=== PATIENT | female | born 1985 | race Caucasian/White ===

== ENCOUNTER → 2017-08-12 | Outpatient (CLI) | payer MEDICAID ==
--- NOTE | 2017-08-12 16:19 | RADIOLOGY REPORT (SQ) ---
EXAM DESCRIPTION: U/S [id number] TRNABD 1GES W/ODOP COMPLETED DATE/TIME: 08/12/2017 3:35 pm REASON FOR STUDY: SUPERVISION FOR FRENCH TRANSLATOR OF NORMAL FIRST Z34.01 ENCNTR FOR SUPRVSN OF NORMAL FIRST PREG, FIRST TRIMES COMPARISON: None. TECHNIQUE: Transabdominal static and realtime grayscale images acquired of the pelvis. Additional se lected spectral and color Doppler images recorded. All images stored on PACs. CG: Not available. CLINICAL DATES: LMP 05/26/2017. 11 weeks 1 day LIMITATIONS: None. FINDINGS: FETUS: Living intrauterine . ULTRASOUND EGA: 11 weeks 0 days ULTRASOUND MIGUELANGEL: 03/03/2018 CRL: 4.2 cm. FHR: 169 beats per minute. SUBCHORIONIC BLEED: No SIZE OF BLEED: Not applicable. UTERUS: No masses or anomalies. 10.6 x 7 x 8.4 cm. CERVICAL LENGTH: 3.5 cm. Closed. RIGHT ADNEXA: Ovary not seen. No adnexal free fluid. No adnexal masses. LEFT ADNEXA: Ovary not seen. No adnexal free fluid. No adnexal masses. FREE FLUID: None. OTHER: No other significant finding. IMPRESSION: LIVING INTRAUTERINE . EGA 11 weeks 0 days. Trimester of : First - 0 to 13 weeks. TECHNICAL DOCUMENTATION: JOB ID: [id number] [employer]- All Rights Reserved rev Reading location - IP/workstation name: [email or web address]
== END ==
LOC: RAD 14:59
PROVIDERS: ATTEND Nurse Practitioner Women's Health
DX: Z34.01 Encounter for supervision of normal first pregnancy, first trimester (principal)
CPT/HCPCS: 76801

== ENCOUNTER 2018-02-27 17:08 | Inpatient (IN) | payer MEDICAID ==
[2018-02-27 17:51] LABS: APPEARANCE,URINE CLEAR; BILIRUBIN,URINE NEGATIVE (NEGATIVE); COLOR,URINE YELLOW; GLUCOSE, URINE NEGATIVE (NEGATIVE); KETONES,URINE NEGATIVE (NEGATIVE); LEUKOCYTE ESTERASE,URINE SMALL (NEGATIVE); NITRITE,URINE NEGATIVE (NEGATIVE); PROTEIN,URINE NEGATIVE (NEGATIVE); URINE SPECIFIC GRAVITY 1.011; UROBILINOGEN,URINE NEGATIVE mg/dL (<2.0)
[2018-02-27 18:06] LABS: URINE AMPHETAMINES SCREEN NEGATIVE; URINE BARBITURATES SCREEN NEGATIVE; URINE BENZODIAZEPINES SCREEN NEGATIVE; URINE COCAINE SCREEN NEGATIVE; URINE MARIJUANA (THC) SCREEN NEGATIVE; URINE METHADONE SCREEN NEGATIVE; URINE PHENCYCLIDINE SCREEN NEGATIVE
[2018-02-27] MEDS ORDERED: RINGERS SOLUTION,LACTATED 1,000 ML IV ONE (18:21)
--- NOTE | 2018-02-27 18:21 | Admission Physical ---
Datetime Report Generated by CPN: 02/27/2018 18:20 CURRENT ADMISSION Chief Complaint: Uterine Contractions Indication for Induction: Not Applicable Admit Impression : Term, Intrauterine ; Ruptured Membranes Admit Plan: Admit to Unit; Initiate Labor Protocol ALLERGIES Medication Allergies: No Medication Allergies: No Known Allergies (02/27/2018) Latex: No Latex Allergies Food Allergies: none Environmental Allergies: none OBSTETRICAL HISTORY EDC: 03/01/2018 00:00 : 1 Para: 0 Gestational Diabetes: No Rh Sensitization: No Incompetent Cervix: No JADE: No Infertility: No ART Treatment: No Uterine Anomaly: No IUGR: No Hx Previous C/S: No Macrosomia: No Hx Loss/Stillborn: No PIH: No Hx : No Placenta Previa/Abruption: No Depression/PP Depression: Yes PTL/PROM: No Post Hemorrhage: No Current Procedures: Ultrasound Obstetrical History Comments: G1- Current SEE RECORDS Alcohol: No Cocaine: No Other Illicit Drugs: No Cigarettes: Former Smoker. 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 Surgery: No Heart Disease: Yes Hosp/Surgery: Yes Autoimmune Disorder: No Anesthetic Complications: No Kidney Disease: No Abnormal Pap Smear: No Neuro/Epilepsy: No Psychiatric Disorders: No Other Medical Diseases: No Hepatitis/Liver Disease: No Significant Family History: No Varicosities/Phlebitis: No Trauma/Violence : No Thyroid Dysfunction: No Medical History Comments: on labetelol for palpitations, Gallbladder removed- 2000, Kidney stone removed 2014 INFECTIOUS HISTORY Gonorrhea: No Genital Herpes: No Chlamydia: No Tuberculosis: No Syphilis: No Hepatitis: No HIV/AIDS Exposure: No Rash or Viral Illness: No HPV: No PHYSICAL EXAM General: Normal HEENT: Normal Neurologic: Normal Thyroid: Normal Heart: Normal Lungs: Normal Breast: Normal Back: Normal Abdomen: Normal Genitourinary Exam: Normal Extremities: Normal DTRs: Normal Pelvic Type: Adequate Vital Signs: Reviewed; Within Normal Limits VAGINAL EXAM Dilatation: 2 Effacement: 50% Station: -3 MEMBRANES Pooling: Negative Ferning Results: Positive Membranes: Ruptured Amniotic Fluid Color: Clear FETUS A EGA: 39.5 Monitoring: External US FHR- Baseline: 150s Variability: Moderate 6-25bpm Accelerations: 15X15 Decelerations: None FHR Category: Category I Admit Comment: Pt had SROM at 1630. Actim Prom Positive. Not uncomfortable with contractions. GBS Negative. PLANS FOR LABOR AND DELIVERY Labor and Delivery: None Pain Management: Epidural Feeding Preference: Breast Benefit of Breast Feed Discussed: Yes Circumcision: N/A INFORMED CONSENT Signature: with User ID: [email or web address]
[2018-02-27 18:38] LABS: ABSOLUTE BASOPHILS # (AUTO) 0.1 10^3/uL (0.0-0.2); ABSOLUTE EOSINOPHILS # (AUTO) 0.2 10^3/uL (0.0-0.6); ABSOLUTE LYMPHOCYTES (AUTO) 1.6 10^3/uL (0.5-4.7); ABSOLUTE NEUT (AUTO) 8.6 10^3/uL (1.7-8.2); BASOPHILS % (AUTO) 0.6 % (0-2); EOSINOPHILS % (AUTO) 1.4 % (0-6); HEMATOCRIT 39.6 % (36.0-47.0); LYMPHOCYTES % (AUTO) 14.1 % (13-45); MEAN CORPUSCULAR HEMOGLOBIN 25.5 pg (27.0-33.4); MEAN CORPUSCULAR HGB CONC 32.9 g/dL (32.0-36.0); MEAN CORPUSCULAR VOLUME 78 fl (80-97); MONOCYTES % (AUTO) 8.7 % (3-13); PLATELET COUNT 281 10^3/uL (150-450); RED BLOOD COUNT 5.11 10^6/uL (3.72-5.28); RED CELL DISTRIBUTION WIDTH 14.8 % (11.5-14.0); SEGMENTED NEUTROPHILS % (AUTO) 75.2 % (42-78); TOTAL CELLS COUNTED % (AUTO) 100 %; WHITE BLOOD COUNT 11.4 10^3/uL (4.0-10.5)
[2018-02-27] MEDS ORDERED: LIDOCAINE 1% INJ-PF (10 MG/ML) 30 ML SDV ONE (19:00)
[2018-02-27] MEDS ORDERED: MISOPROSTOL 0.2 MG TABLET ONE (19:00)
[2018-02-27] MEDS ORDERED: OXYTOCIN/NORMAL SALINE 20 UNIT/1,000 ML RTUINJ ONE (19:00)
[2018-02-27] MEDS ORDERED: OXYTOCIN/NORMAL SALINE 20 UNIT/1,000 ML RTUINJ IV PRN (19:56)
[2018-02-28] MEDS ORDERED: DIPHENHYDRAMINE HCL 25 MG CAPSULE ONE (05:54)
[2018-02-28] MEDS ORDERED: EPHEDRINE SULFATE INJ 50 MG/1 ML AMPULE ONE (06:29)
[2018-02-28] MEDS ORDERED: BUPIVACAINE HCL 0.5 % INJ/PF 30 ML SDV ONE (06:30)
[2018-02-28] MEDS ORDERED: FENTANYL/BUPIVACAINE/NS/PF 300 MCG/150 ML RTUINJ EPI ONE (06:30)
--- NOTE | 2018-02-28 06:38 | L&D Progress Notes ---
PROGRESS NOTES Datetime Report Generated by CPN: 02/28/2018 06:38 PROGRESS NOTE Impression: Arrest of Dilatation/Descent Plan Other: stop pitocin for 1/2 hr Vital Signs : Reviewed; Within Normal Limits Comment: Pt was hyperstimulating and now has some labial and cervical swelling. I spoke with pt and asked her to consider an epidural so that her body can relax a little and maybe she will progress. Will restart Pitocin after epidural. VAGINAL EXAM Dilatation: 2 Effacement: 50% Station: -3 LAST VAGINAL EXAM-NURSING Dilitation: 7.0 Dilitation: 7.0 Dilitation: 7.0 Dilitation: 5.0 Dilitation: 2.0 Effacement: 90 Effacement: 90 Effacement: 90 Effacement: 75 Effacement: 70 Station: 0 Station: 0 Station: 0 Station: 0 Station: -3 Contractions: RN at bedside, troubleshooting beau novii, not picking up contractions MEMBRANES Pooling: Negative Ferning Results: Positive Membranes: Ruptured Amniotic Fluid Color: Clear FETUS A FHR - Baseline: 140s Monitoring: External US Variability: Moderate 6-25bpm Accelerations: 15X15 Decelerations: None FHR Category: Category I : 39.6 : 39.5 SIGNATURE SIGNATURE: ,[id number] SIGNATURE: ,[id number] Signature: with User ID: [email or web address]
[2018-02-28] MEDS ORDERED: RINGERS SOLUTION,LACTATED 1,000 ML IV PRN (08:07)
--- NOTE | 2018-02-28 10:14 | L&D Progress Notes ---
PROGRESS NOTES Datetime Report Generated by CPN: 02/28/2018 10:13 PROGRESS NOTE Impression: Reassuring Heart Rate Impression Other: slow labor progression Procedures: Artificial ROM Procedures- Other: forbag noted Plan: Continue Present Management; Augmentation Plan Other: IUPC and FSE placed. Pitocin at 10 mu/min. Keep MVU's > 200 Vital Signs : Reviewed; Within Normal Limits Comment: Pt remains comfortable w/ epidural in place. IUPC and FSE applied due to slow labor progression and ? variable vs late decels occassionally. Position changes encouraged. Dr Barron updated on pts slow progress. Will increase Pitocin to at least 200 mmHg on MVU's. VAGINAL EXAM Dilatation: 4 Effacement: 70 Station: -3 Contractions: q1-2 Dilitation: 4.0 Effacement: 70 Station: -3 Contractions: Unable to determine MEMBRANES Membranes: Ruptured Amniotic Fluid Color: Meconium, Light FETUS A FHR - Baseline: 140 Monitoring: Internal Scalp Electrode Variability: Moderate 6-25bpm Accelerations: 10X10 Decelerations: Variable FETUS C SIGNATURE: [id number];10,[id number] Assignment: Shemar Barron MD Signature: with User ID: [email or web address] : with User ID: [email or web address]
[2018-02-28] MEDS ORDERED: CITRIC ACID/SODIUM CITRATE ORAL SOLN 15 ML UDCUP ONE (11:05)
[2018-02-28] MEDS ORDERED: CEFAZOLIN 1 GM/D5W RTU 2 GM/100 ML RTUPB IV ONE (11:05)
[2018-02-28] MEDS ORDERED: LIDOCAINE 2% INJ-PF (20 MG/ML) 10 ML AMPUL ONE (11:23)
[2018-02-28] MEDS ORDERED: OXYTOCIN 10 UNIT/ML VIAL ONE (11:29)
[2018-02-28] MEDS ORDERED: MIDAZOLAM 2 MG/2 ML INJ ONE (11:30)
[2018-02-28] MEDS ORDERED: OXYTOCIN/NORMAL SALINE 20 UNIT/1,000 ML RTUINJ ONE (11:30)
[2018-02-28] MEDS ORDERED: MORPHINE SULFATE 10 MG/ML INJ ONE (11:30)
[2018-02-28] MEDS ORDERED: ONDANSETRON HCL INJ/PF 4 MG/2 ML SDV ONE (11:30)
[2018-02-28] MEDS ORDERED: MORPHINE SULFATE 10 MG/ML INJ IM PRN (12:15)
[2018-02-28] MEDS ORDERED: ACETAMINOPHEN 325 MG TABLET PO PRN (12:15)
[2018-02-28] MEDS ORDERED: MEASLES,MUMPS&RUBELLA VACC/PF 0.5 ML VIAL SUBCUT PRN (12:15)
[2018-02-28] MEDS ORDERED: SIMETHICONE 80 MG TAB.CHEW PO PRN (12:15)
[2018-02-28] MEDS ORDERED: DIPH/PERTUSS(ACELL)/TETANUS VAC/PF 0.5 ML SYR (>=10YO) IM PRN (12:15)
[2018-02-28] MEDS ORDERED: ACETAMINOPHEN 1,000 MG/100 ML RTUPB IV PRN (12:15)
[2018-02-28] MEDS ORDERED: OXYTOCIN/NORMAL SALINE 20 UNIT/1,000 ML RTUINJ IV PRN (12:15)
[2018-02-28] MEDS ORDERED: PROMETHAZINE HCL INJ 25 MG/1 ML VIAL IV PRN (12:15)
--- NOTE | 2018-02-28 12:18 | PDOC DELIVERY SUMMARY ---
Delivery Summary - Maternal Risk Factors: Premature Rupture Membrane Ruptured Membranes: SROM Fluids: Meconium Stained - Delivery Labor: Augmentation Presentation: Vertex Heart Rate Monitoring: Externally, Internally Support Person Present: Yes : Emergency Placenta: Within Normal Limits Nuchal Cord: Yes - Medications Type of Anesthesia:: Epidural
[2018-02-28] MEDS ORDERED: KETOROLAC TROMETHAMINE INJ/PF 30 MG/1 ML SDV ONE (12:45)
[2018-02-28] MEDS ORDERED: ACETAMINOPHEN 1,000 MG/100 ML RTUPB IV ONE (12:45)
[2018-02-28] MEDS ORDERED: KETOROLAC TROMETHAMINE INJ/PF 30 MG/1 ML SDV IV SCH (14:00)
[2018-02-28] MEDS: KETOROLAC TROMETHAMINE INJ/PF 30 MG/1 ML SDV IV SCH (14:34)
--- NOTE | 2018-02-28 17:48 | Delivery Summary ---
Del Sum A-C Datetime Report Generated by CPN: 02/28/2018 17:48 DELIVERY PERSONNEL DELIVERY PERSONNEL: [id number] Delivery Doctor:: Shemar Barron MD Anesthesiologist:: Michelle Burnett MD HEAVY DUTY CUSTODIAN:: Grant Garcia CRNA Labor and Delivery Nurse:: Chun Khan RN Biologist:: Chun Khan RN Neonatal Nurse Practitioner:: JANUARY Artis Nursery Nurse:: Desi Broussard RN Nursery Nurse:: Alana Lal RN Tire Setter/SWEET DOUGH MIXER: Sherri Rivas CST Tire Setter/SWEET DOUGH MIXER: Piyush Adamson, ST MATERNAL INFORMATION Delivery Anesthesia: Epidural Medications After Delivery: Pitocin 10 Units IM; Other-Please Comment Meds After Delivery Comment: Ofirmev and Ketorolac Estimated Blood Loss (ml): 650 Maternal Complications: None Provider Comments: meconium and nuchal cord LABOR SUMMARY EDC: 03/01/2018 00:00 No. Babies in Womb: 1 Attempted: No Labor Anesthesia: None LABOR INFORMATION Reason for Induction: Not Applicable Oxytocin: Augmentation Group B Beta Strep: Negative Steroids Given: None Reason Steroids Not Administered: Not Applicable MEMBRANES Membranes Rupture Method: Artificial Rupture of Membranes: 02/27/2018 16:30 Length of Rupture (hr): 19.30 Amniotic Fluid Color: Light Meconium Amniotic Fluid Amount: Small STAGES OF LABOR Stage 3 hr: 0 Stage 3 min: 1 CSECTION DELIVERY Primary Indication: Nonreassuring Status CSection Urgency: Non-Scheduled CSection Incidence: Primary Labor: No Labor Elective: N/A CSection Incision: Lower Uterine Transverse BABY A INFORMATION Delivery Date/Time: 02/28/2018 11:48 Method of Delivery: Born in Route : No : N/A Forceps: N/A Vacuum Extraction: N/A Shoulder Dystocia : No PRESENTATION/POSITION BABY A Presentation: Cephalic Cephalic Presentation: Vertex Breech Presentation: N/A PLACENTA INFORMATION BABY A Placenta Delivery Time : 02/28/2018 11:49 Placenta Method of Delivery: Manual Removal Placenta Status: Delivered SCORES BABY A Heart Rate 1 min: >100 bpm Resp Effort 1 min: Good Cry Reflex Irritability 1 min: Cough or Sneeze or Pulls Away Muscle Tone 1 min: Active Motion Color 1 min: Blue/Pale Resuscitation Effort 1 min: Tactile Stimulation SCORE 1 MIN: 8 Heart Rate 5 min: >100 bpm Resp Effort 5 min: Good Cry Reflex Irritability 5 min: Cough or Sneeze or Pulls Away Muscle Tone 5 min: Active Motion Color 5 min: Body [place], Extremities Blue Resuscitation Effort 5 min: N/A SCORE 5 MIN: 9 INFANT INFORMATION BABY A Gestational Age at Delivery: 39.6 Gestational Status: Full Term- 39- 40.6 Weeks Infant Outcome : Liveborn Condition : Stable Sex: Female IDENTIFICATION BABY A Verification Date/Time: 02/28/2018 13:29 ID Band Number: [id number] Mother's Name Verified: Yes RN Verifying : Lavon Khan RN and Silverio Argueta RN WEIGHT/LENGTH BABY A Infant Birthweight (gm): 3125 Weight (lb): 6 Infant Weight (oz): 14 Length (in): 19.50 Length (cm): 49.53 CORD INFORMATION BABY A No. Cord Vessels: 3 Nuchal Cord : Around Neck x1, Loose Cord Blood Taken: Yes-For Storage (Mom's Blood type +) Suction: Mouth BABY B INFORMATION : N/A SIGNATURES Signature: with User ID: [email or web address]
[2018-02-28] MEDS: DOCUSATE SODIUM 100 MG CAPSULE PO SCH (18:37)
[2018-02-28] MEDS: OXYCODONE-ACETAMINOPHEN 5-325 MG TABLET PO PRN (21:19)
[2018-03-01] MEDS: KETOROLAC TROMETHAMINE INJ/PF 30 MG/1 ML SDV IV SCH ×2 (00:23→08:36)
[2018-03-01] MEDS: OXYCODONE-ACETAMINOPHEN 5-325 MG TABLET PO PRN ×2 (06:22→16:01)
--- NOTE | 2018-03-01 07:57 | OPERATIVE REPORT E ---
Operative Report NAME: FIDELIA TRAVIS : 1985 AGE: 32Y DATE OF SURGERY: 02/28/2018 ROOM: 218 PREOPERATIVE DIAGNOSIS: IUP at term with rupture of membranes, repetitive late decelerations with nonreassuring strip. POSTOPERATIVE DIAGNOSIS: IUP at term with rupture of membranes, repetitive late decelerations with nonreassuring strip. PROCEDURE: Primary low transverse , delivery of a female 6 pounds 14 ounces, Apgars of 8 and 9. SURGEON: Shea ARMENTA M.D. ESTIMATED BLOOD LOSS: Less than 800 mL. TISSUE REMOVED OR ALTERED: Placenta. ANESTHESIA: Epidural. DESCRIPTION OF PROCEDURE: The patient was placed in supine position, rolled on her right side, prepped and draped in sterile fashion. The Pfannenstiel incision was made and extended through the subcutaneous tissue and fascia with sharp dissection. The fascia was sharply divided. Rectus muscles were bluntly and sharply divided. Parietal peritoneum was entered with sharp dissection. Uterus nicked in the midline and extended bilaterally. Infant was then delivered through the uterine abdominal incision. Nose and mouth suctioned with bulb syringe. Cord was clamped. Infant was passed from the table. Placenta was manually extracted and the uterus closed in 2 layers, first with a running stitch of 2-0 Vicryl and a second Lembert stitch imbricating the first layer. Several areas of bleeding were noted and controlled with figure of eight sutures of 0 Vicryl. Hemostasis was noted. Fascia closed with 0 Vicryl, skin with subcu absorbable keely. Her urine remained clear throughout the procedure and she was taken to recovery in good condition, infant to nursery in good condition. DICTATING PHYSICIAN: Shea ARMENTA M.D. [id number] PHY#: [id number] ID: [id number] JOB#: [id number] ACCT: [id number] cc:Shea ARMENTA M.D. >
--- NOTE | 2018-03-01 08:47 | PDOC PROGRESS REPORT ---
Subjective-OB Progress Note for:: 03/01/18 Subjective: Doing well, pt wants to take her own medication, , voiding, eating well Physical Exam (OB) Vital Signs: Temp Pulse Resp BP Pulse Ox 98.3 F 113 H 16 122/74 92 03/01/18 07:39 03/01/18 07:39 03/01/18 07:39 03/01/18 07:39 03/01/18 07:39 Intake & Output 02/28/18 03/01/18 03/02/18 06:59 06:59 06:59 Intake Total 500 Output Total 1400 Balance -900 Weight 96.9 kg - Dressing Removed: No - medipore Incision: Dressing Closure Type: Sutures - Lochia Lochia Amount: Small 10-25 ml Lochia Color: Rubra/Red - Abdomen Description: Soft, Round Hernia Present: No Fundal Description: Firm, Midline Fundal Height: u/u - u/2 Objective-Diagnostic Laboratory: 02/27/18 18:26 Assessment and Plan(PN) - Assessment and Plan (1) Non-reassuring electronic monitoring tracing Is this a current diagnosis for this admission?: Yes (2) Meconium staining Is this a current diagnosis for this admission?: Yes (3) Delivery by section of full-term infant Is this a current diagnosis for this admission?: Yes - Time Spent with Patient Time with patient: Less than 15 minutes Medications reviewed and adjusted accordingly: Yes - Disposition Anticipated Discharge: Home Within: within 24 hours
[2018-03-01] MEDS: DOCUSATE SODIUM 100 MG CAPSULE PO SCH ×2 (09:20→17:08)
[2018-03-01] MEDS: PRENATAL VITAMIN W DHA CAPSULE PO SCH (09:20)
[2018-03-01] MEDS: IBUPROFEN 800 MG TABLET PO SCH ×2 (17:08→23:44)
[2018-03-02] MEDS: IBUPROFEN 800 MG TABLET PO SCH (05:07)
[2018-03-02 05:28] LABS: HEMATOCRIT 25.3 % (36.0-47.0); MEAN CORPUSCULAR HEMOGLOBIN 26.5 pg (27.0-33.4); MEAN CORPUSCULAR HGB CONC 34.1 g/dL (32.0-36.0); MEAN CORPUSCULAR VOLUME 78 fl (80-97); PLATELET COUNT 260 10^3/uL (150-450); RED BLOOD COUNT 3.25 10^6/uL (3.72-5.28); RED CELL DISTRIBUTION WIDTH 15.1 % (11.5-14.0)
[2018-03-02 05:43] LABS: HEMOGLOBIN 8.6 g/dL (12.0-15.5)
[2018-03-02] MEDS: OXYCODONE-ACETAMINOPHEN 5-325 MG TABLET PO PRN (07:41)
--- NOTE | 2018-03-02 09:35 | PDOC DISCHARGE SUMMARY ---
Final Diagnosis Discharge Date: 03/02/18 - POD #2, doing well, pt desires to go home today. , O+, rubella immune Discharge Data - Discharge Medication Prescriptions: Ferrous Sulfate [Feosol 325 mg Tablet] 325 mg PO DAILY #30 tablet Ibuprofen [Motrin 800 mg Tablet] 800 mg PO Q6 #60 tablet Oxycodone HCl/Acetaminophen [Percocet 5-325 mg Tablet] 2 tab PO Q4HP PRN #30 tablet PRN Reason: Home Medications: Labetalol HCl 300 mg PO BID 02/27/18 Vit No.130/Iron/Folic [ Tablet] 1 each PO DAILY 02/27/18 Sertraline HCl [Zoloft 50 mg Tablet] 50 mg PO DAILY 02/27/18 Ferrous Sulfate [Feosol 325 mg Tablet] 325 mg PO DAILY #30 tablet 03/02/18 Ibuprofen [Motrin 800 mg Tablet] 800 mg PO Q6 #60 tablet 03/02/18 Oxycodone HCl/Acetaminophen [Percocet 5-325 mg Tablet] 2 tab PO Q4HP PRN #30 tablet 03/02/18 Reason(s) for Admission: Onset of Labor Intrapartum Procedure(s): : Low Cervical, Transverse - Diagnosis Test Laboratory: Temp Pulse Resp BP Pulse Ox 98.1 F 89 18 118/75 98 03/02/18 08:02 03/02/18 08:02 03/02/18 08:02 03/02/18 08:02 03/02/18 08:02 02/27/18 02/27/18 03/02/18 17:17 18:26 05:13 RBC 5.11 3.25 L Hgb 13.0 8.6 L D Hct 39.6 25.3 L Urine Opiates Screen NEGATIVE - Discharge information/Instructions Discharge Activity: Activity As Tolerated, No Driving, No Lifting Over 10 Pounds Discharge Diet: As Tolerated, Regular Disposition: HOME, SELF-CARE Follow up with: [facility] in: 1, Weeks - BP check, incision check
[2018-03-02] MEDS ORDERED: FERROUS SULFATE 325 MG TABLET PO SCH (10:00)
[2018-03-02] MEDS: DOCUSATE SODIUM 100 MG CAPSULE PO SCH (10:12)
[2018-03-02] MEDS: PRENATAL VITAMIN W DHA CAPSULE PO SCH (10:12)
[2018-03-02 11:20] VITALS: BP 128/68
== END 2018-03-02 12:25 | disposition home or self-care (01) | DRG 788 ==
LOC: LC 17:08 → LR 18:12 → 2S 02-28 14:02
PROVIDERS: ADMIT Obstetrics & Gynecology; ATTEND Obstetrics & Gynecology Gynecology
PROC: 4A1HXCZ Monitoring of Products of Conception, Cardiac Rate, External Approach (ICD-10-PCS; 2018-02-27)
PROC: 10D00Z1 Extraction of Products of Conception, Low, Open Approach (ICD-10-PCS; principal; 2018-02-28)
DX: O76 Abnormality in fetal heart rate and rhythm complicating labor and delivery (principal); O42.92 Full-term premature rupture of membranes, unspecified as to length of time between rupture and onset of labor; O62.1 Secondary uterine inertia; O77.0 Labor and delivery complicated by meconium in amniotic fluid; O69.81X0 Labor and delivery complicated by cord around neck, without compression, not applicable or unspecified; Z3A.39 39 weeks gestation of pregnancy; Z37.0 Single live birth; Z90.49 Acquired absence of other specified parts of digestive tract
CPT/HCPCS: 1961; 36415; 80307; 81005; 84112; 85025; 85027; 86592; 86850; 86900; 86901; 88307; 94799; J0131; J0690; J1885; J2250; J2270; J2405; J2590; J3010; J3490

== ENCOUNTER 2020-02-10 10:56 | Observation (INO) | payer MEDICAID ==
[2020-02-10 11:44] LABS: ABSOLUTE EOSINOPHILS # (AUTO) 0.1 10^3/uL (0.0-0.6); ABSOLUTE LYMPHOCYTES (AUTO) 1.3 10^3/uL (0.5-4.7); ABSOLUTE MONOCYTES (AUTO) 0.4 10^3/uL (0.1-1.4); BASOPHILS % (AUTO) 0.7 % (0-2); EOSINOPHILS % (AUTO) 3.6 % (0-6); HEMATOCRIT 38.6 % (36.0-47.0); MEAN CORPUSCULAR HEMOGLOBIN 27.6 pg (27.0-33.4); MEAN CORPUSCULAR HGB CONC 33.7 g/dL (32.0-36.0); MEAN CORPUSCULAR VOLUME 82 fl (80-97); MONOCYTES % (AUTO) 10.8 % (3-13); PLATELET COUNT 257 10^3/uL (150-450); RED CELL DISTRIBUTION WIDTH 13.6 % (11.5-14.0); SEGMENTED NEUTROPHILS % (AUTO) 51.9 % (42-78); TOTAL CELLS COUNTED % (AUTO) 100 %; WHITE BLOOD COUNT 3.8 10^3/uL (4.0-10.5)
--- NOTE | 2020-02-10 12:05 | PDOC PROGRESS REPORT ---
Subjective Date:: 02/10/20 Subjective:: She was sent from the office with an ectopic. Reason For Visit: EPTOPIC Physical Exam - Physical Exam General appearance: PRESENT: no acute distress, well-developed, well-nourished Head exam: PRESENT: atraumatic, normocephalic Pulses: PRESENT: normal dorsalis pedis pul, +2 pedal pulses bilateral Vascular exam: PRESENT: normal capillary refill GI/Abdominal exam: PRESENT: normal bowel sounds, soft. ABSENT: distended, guarding, mass, organolmegaly, rebound, tenderness Extremities exam: PRESENT: full ROM. ABSENT: calf tenderness, clubbing, pedal edema Psychiatric exam: PRESENT: appropriate affect, normal mood. ABSENT: homicidal ideation, suicidal ideation Result Laboratory Results: 02/10/20 11:31 02/10/20 11:31 WBC 3.8 L RBC 4.70 Hgb 13.0 Hct 38.6 MCV 82 MCH 27.6 MCHC 33.7 RDW 13.6 Plt Count 257 Seg Neutrophils % 51.9 Impressions: Likely ectopic with a quant of 15K and no IUP. Plan a diagnostic laparoscopy and treat ectopic with salpingostomy or salpingectomy. Assessment & Plan - Diagnosis (1) Ectopic Qualifiers: Location of ectopic : unspecified location Intrauterine status: without intrauterine Qualified Code(s): O00.90 - Unspecified ectopic without intrauterine Is this a current diagnosis for this admission?: Yes Plan: Diagnostic laparoscopy and possible salpingectomy or salpingostomy to treat. - Time Time Spent with patient: 15-24 minutes Medications reviewed and adjusted accordingly: Yes Anticipated discharge: Home Anticipated DC Timeframe: within 24 hours - Plan Summary Plan Summary: Plan diagnostic laparoscopy to diagnose and treat ectopic.
[2020-02-10] MEDS ORDERED: EPHEDRINE SULFATE INJ 50 MG/1 ML AMPULE ONE (12:57)
[2020-02-10] MEDS ORDERED: FENTANYL CITRATE INJ/PF 100 MCG/2 ML AMPUL ONE (12:57)
[2020-02-10] MEDS ORDERED: SUGAMMADEX SODIUM 200 MG/2 ML SDV IV ONE (12:57)
[2020-02-10] MEDS ORDERED: HYDROMORPHONE HCL INJ/PF 2 MG/ML AMPULE ONE (12:57)
[2020-02-10] MEDS ORDERED: PROPOFOL INJ 200 MG/20 ML VIAL IV ONE (12:57)
[2020-02-10] MEDS ORDERED: MIDAZOLAM 2 MG/2 ML INJ ONE (12:57)
--- NOTE | 2020-02-10 14:32 | PDOC PROGRESS REPORT ---
Subjective Date:: 02/10/20 Subjective:: She still reports that she feels fine. Reason For Visit: EPTOPIC Physical Exam - Physical Exam Vital Signs: Temp Pulse Resp BP Pulse Ox 98.2 F 82 15 115/76 100 02/10/20 12:50 02/10/20 11:27 02/10/20 11:27 02/10/20 11:27 02/10/20 11:27 General appearance: PRESENT: no acute distress, well-developed, well-nourished Respiratory exam: PRESENT: unlabored Cardiovascular exam: PRESENT: RRR. ABSENT: diastolic murmur, rubs, systolic murmur Result Laboratory Results: 02/10/20 11:31 02/10/20 02/10/20 11:31 11:31 WBC 3.8 L RBC 4.70 Hgb 13.0 Hct 38.6 MCV 82 MCH 27.6 MCHC 33.7 RDW 13.6 Plt Count 257 Seg Neutrophils % 51.9 Blood Type O POSITIVE Antibody Screen NEGATIVE Assessment & Plan - Diagnosis (1) Ectopic Qualifiers: Location of ectopic : unspecified location Intrauterine status: without intrauterine Qualified Code(s): O00.90 - Unspecified ectopic without intrauterine Is this a current diagnosis for this admission?: Yes - Time Time Spent with patient: 15-24 minutes Anticipated discharge: Home Anticipated DC Timeframe: within 24 hours - Plan Summary Plan Summary: Now covid pos. We will hold off on the laparoscopy and recheck a quant hcg today and tomorrow. NPO after MN. Her last quant hcg was on Saturday.
[2020-02-10] MEDS: RINGERS SOLUTION,LACTATED 1,000 ML IV PRN (18:31)
[2020-02-10] MEDS: ACETAMINOPHEN 325 MG TABLET PO PRN ×2 (18:37→22:40)
[2020-02-11] MEDS: RINGERS SOLUTION,LACTATED 1,000 ML IV PRN ×2 (05:45→14:18)
[2020-02-11] MEDS ORDERED: ROCURONIUM BROMIDE INJ 50 MG/5 ML VIAL IV ONE (09:07)
--- NOTE | 2020-02-11 11:52 | PDOC PROGRESS REPORT ---
Subjective Date:: 02/11/20 Subjective:: Feels okay today. Has mild headache and has lost her sense of smell and taste. S he denies abdominal pain. Endorses vaginal spotting. No heavy bleeding. Reports she did have period type bleeding 4-5 days ago. Denies shortness of breath, fever, chills, cough. Patient denies sick contacts. She states " I only go to work and go home" . 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 ABSENT: calf tenderness, clubbing, pedal edema Neurological exam: PRESENT: alert, awake, oriented to person, oriented to place, oriented to time, oriented to situation, CN II-XII grossly intact. ABSENT: motor sensory deficit Psychiatric exam: PRESENT: appropriate affect, normal mood. ABSENT: homicidal ideation, suicidal ideation Result Laboratory Results: 02/10/20 11:31 02/10/20 02/10/20 11:31 11:31 WBC 3.8 L RBC 4.70 Hgb 13.0 Hct 38.6 MCV 82 MCH 27.6 MCHC 33.7 RDW 13.6 Plt Count 257 Seg Neutrophils % 51.9 Blood Type O POSITIVE Antibody Screen NEGATIVE Assessment & Plan - Diagnosis (1) 2019 novel coronavirus disease (COVID-19) Is this a current diagnosis for this admission?: Yes (2) Ectopic Qualifiers: Location of ectopic : unspecified location Intrauterine status: without intrauterine Qualified Code(s): O00.90 - Unspecified ectopic without intrauterine Is this a current diagnosis for this admission?: Yes - Time Time Spent with patient: Less than 15 minutes Medications reviewed and adjusted accordingly: Yes Anticipated discharge: Home Anticipated DC Timeframe: within 48 hours - 34 yo G - Plan Summary Plan Summary: at approximately 12 weeks EGA with possible ectopic vs SAB with declining quant HCG. She also was dx on admission with COvid 19 positive by Nasal swab which was done as screening incase surgical intervention needed -VSS, afebrile -Exam negative. NO pain on exam. She is having loss of smell/taste and mild headache -discussed with patient that with HCG dropping from 17 K to 14 K from yesterday to today and recent vaginal bleeding : she may have had an SAB and her hormones are trailing downward. Alternatively, she may still have an ectopic of unknown origin. US done yesterday at [facility] was negative for IUP and endometrial stripe was thin. Small left cyst seen of left ovary but nothing suspicious for ectopic noted. She was admitted last night for monitoring and serial abdominal exams. No change management coordinator night and no pain. WIll get CT today to see if anything is seen in abdomen of pelvis suspicious for ectopic . May require surgery if seen. If nothing seen then perhaps she has passed tissue and Quant HCG is trailing downward. IF the later is the case she could be sent home with outpatient f/u -RH positive -She is having loss of taste and smell along with mild HANEY both likely d/t covid. WIll monitor. If worsening symptoms will consult hospitalist for assistance.
[2020-02-11] MEDS: ACETAMINOPHEN 325 MG TABLET PO PRN (12:17)
--- NOTE | 2020-02-11 12:25 | RADIOLOGY REPORT (SQ) ---
EXAM DESCRIPTION: CT ABD/PELVIS WITH IV ORAL IMAGES COMPLETED DATE/TIME: 02/11/2020 11:27 am REASON FOR STUDY: evaluate ectopic (Still in falopian tube, or being re-absorbed?) COMPARISON: None. TECHNIQUE: CT scan of the abdomen and pelvis performed using helical scanning technique with dynamic intravenous contrast injection. No oral contrast. Images reviewed with lung, soft tissue, and bone windows. Reconstructed coronal and sagittal MPR images reviewed. Delayed images for evaluation of the urinary system also acquired. All images stored on PACS. All CT scanners at this facility use dose modulation, iterative reconstruction, and/or weight based d osing when appropriate to reduce radiation dose to as low as reasonably achievable (ALARA). [facility]: Dose Right [facility]: CareDose [facility]: Dose Right [facility]: Teradose 4D [facility]: Learn It Systems CONTRAST TYPE AND DOSE: contrast/concentration: Isovue 350.00 mmol/ml; Total Contrast Delivered: 80. 0 ml; Total Saline Delivered: 27.0 ml RENAL FUNCTION: None required. The patient is less than 50 years old. RADIATION DOSE: CT Rad equipment meets quality standard of care and radiation dose reduction techniq ues were employed. CTDIvol: 12.8 - 12.8 mGy. DLP: 1336 mGy-cm.. LIMITATIONS: None. FINDINGS: LOWER CHEST: No consolidation or pleural effusion. LIVER: Normal size. No masses. No dilated ducts. SPLEEN: Normal size. No focal lesions. PANCREAS: No masses. No significant calcifications. No adjacent inflammation or peripancreatic fluid collections. Pancreatic duct not dilated. GALLBLADDER: Surgically absent. ADRENAL GLANDS: No significant masses or asymmetry. RIGHT KIDNEY AND URETER: No solid masses. No significant calcifications. No hydronephrosis or hyd roureter. LEFT KIDNEY AND URETER: No solid masses. No significant calcifications. No hydronephrosis or hydr oureter. AORTA AND VESSELS: No aneurysm. No dissection. Renal arteries, SMA, celiac without stenosis. RETROPERITONEUM: No retroperitoneal adenopathy, hemorrhage or masses. BOWEL AND PERITONEAL CAVITY: No masses or inflammatory changes. No free fluid or peritoneal masses. APPENDIX: Normal. PELVIS: No mass. No free fluid. Normal bladder. The appearance of a 2.7 cm dominant follicle withi n the left adnexa may represent corpus luteum in this patient with given history of . An ad ditional 12 x 7 x 8 mm hypoattenuating focus in the region of the left adnexa may represent history- reported ectopic . ABDOMINAL WALL: No masses. No hernias. BONES: No significant or acute findings. OTHER: No other significant finding. IMPRESSION: No comparison imaging available. A 12 x 7 x 8 mm hypoattenuating focus in the region of the left adnexa may represent history-reported ectopic . Please note that CT imaging is ne ither sensitive nor specific in evaluation of ectopic pregnancies. Consider dedicated pelvic ultraso und. TECHNICAL DOCUMENTATION: JOB ID: [id number] Quality ID # [id number]: Final reports with documentation of one or more dose reduction techniques (e.g., Au tomated exposure control, adjustment of the mA and/or kV according to patient size, use of iterative reconstruction technique) 2010 [employer]- All Rights Reserved Reading location - IP/workstation name: [email or web address]
[2020-02-11] MEDS ORDERED: ONDANSETRON HCL INJ/PF 4 MG/2 ML SDV ONE (17:38)
[2020-02-11] MEDS ORDERED: MIDAZOLAM 2 MG/2 ML INJ ONE (17:38)
[2020-02-11] MEDS ORDERED: KETOROLAC TROMETHAMINE 60 MG/2 ML SDV ONE (17:38)
[2020-02-11] MEDS ORDERED: FENTANYL CITRATE INJ/PF 100 MCG/2 ML AMPUL ONE (17:38)
[2020-02-11] MEDS ORDERED: DEXAMETHASONE SOD PHOSPHATE INJ 4 MG/1 ML VIAL ONE (17:38)
[2020-02-11] MEDS ORDERED: PROPOFOL INJ 200 MG/20 ML VIAL IV ONE (17:38)
[2020-02-11] MEDS ORDERED: MEPERIDINE HCL/PF INJ 25 MG/1 ML DISP.SYRIN IV PRN (18:31)
[2020-02-11] MEDS ORDERED: FENTANYL CITRATE INJ/PF 100 MCG/2 ML AMPUL IV PRN ×3 (18:31)
[2020-02-11] MEDS ORDERED: ONDANSETRON HCL INJ/PF 4 MG/2 ML SDV IV PRN (18:31)
[2020-02-11] MEDS ORDERED: DIPHENHYDRAMINE HCL 50 MG/ML VIAL IV PRN (18:31)
[2020-02-11] MEDS ORDERED: PROMETHAZINE HCL INJ 25 MG/1 ML VIAL IV PRN (18:31)
[2020-02-11] MEDS ORDERED: MORPHINE SULFATE 10 MG/ML INJ IV PRN (18:31)
[2020-02-11] MEDS ORDERED: MORPHINE SULFATE 10 MG/ML INJ ONE (18:56)
[2020-02-11] MEDS ORDERED: RINGERS SOLUTION,LACTATED 1,000 ML IV PRN (20:39)
[2020-02-11] MEDS ORDERED: TRAMADOL HCL 50 MG TABLET PO PRN ×2 (20:39→20:41)
[2020-02-11] MEDS ORDERED: KETOROLAC TROMETHAMINE INJ/PF 30 MG/1 ML SDV IV PRN (20:39)
[2020-02-11] MEDS ORDERED: HYDROMORPHONE HCL INJ/PF 2 MG/ML AMPULE IV PRN (20:42)
[2020-02-11] MEDS ORDERED: IBUPROFEN 800 MG TABLET PO SCH (22:00)
[2020-02-12] MEDS: RINGERS SOLUTION,LACTATED 1,000 ML IV PRN (05:35)
[2020-02-12 06:12] LABS: ABSOLUTE LYMPHOCYTES (AUTO) 0.8 10^3/uL (0.5-4.7); ABSOLUTE MONOCYTES (AUTO) 0.4 10^3/uL (0.1-1.4); ABSOLUTE NEUT (AUTO) 4.9 10^3/uL (1.7-8.2); BASOPHILS % (AUTO) 0.1 % (0-2); EOSINOPHILS % (AUTO) 0.1 % (0-6); HEMATOCRIT 34.3 % (36.0-47.0); HEMOGLOBIN 11.7 g/dL (12.0-15.5); LYMPHOCYTES % (AUTO) 13.8 % (13-45); MEAN CORPUSCULAR HEMOGLOBIN 27.6 pg (27.0-33.4); MEAN CORPUSCULAR VOLUME 81 fl (80-97); PLATELET COUNT 223 10^3/uL (150-450); RED BLOOD COUNT 4.22 10^6/uL (3.72-5.28); RED CELL DISTRIBUTION WIDTH 13.2 % (11.5-14.0); TOTAL CELLS COUNTED % (AUTO) 100 %; WHITE BLOOD COUNT 6.1 10^3/uL (4.0-10.5)
--- NOTE | 2020-02-12 06:48 | Operative Report ---
Operative Report DATE OF SURGERY: 02/11/20 PREOPERATIVE DIAGNOSIS: Ectopic . LLQ abdominal pain POSTOPERATIVE DIAGNOSIS: Same as above OPERATION: Diagnostic laparoscopy with left salpingectomy and removal of ectopic tissue SURGEON: MARILYNN MONTANEZ ANESTHESIA: GA TISSUE REMOVED OR ALTERED: Left fallopian tube, products of conception COMPLICATIONS: None ESTIMATED BLOOD LOSS: 50cc INTRAOPERATIVE FINDINGS: Uterus appears normal, enlarged left fallopian tube in isthmic region of tube.Right fallopian tube grossly normal as are both ovaries. The posterior and anterior cul de sacs have inflammatory reactive changes. PROCEDURE: IV fluids: per anesthesia record Urinary output: 75 cc urine emptied from the bladder at the beginning of the procedure Findings: Normal-appearing uterus, Left fallopian tube with ectopic, right fallopian tube and bilateral ovaries . Liver seen and appears normal Position: To recovery room in stable condition Description of procedure: The patient was taken to the operating room and general anesthesia was administered and found to be adequate. She was then placed on the OR table in the dorsal lithotomy position. The Patient was prepped and draped in usual sterile fashion. Timeout was taken. A bivalve spectulm was to visualize the cervix. The anterior lip of the cervix was then grasped with a single tooth tenaculum and a Fi.tt uterine manipulator was placed. At this time attention was turned of the patient's abdomen and sterile gloves we re donned a 1 cm infra umbilical incision was made horizontally and carried down to the level of the rectus fascia. The rectus fascia was then grasped with 2 Franny clamps elevated and incised with Winter scissors. A digital sweep was done noting entry into the peritoneum. The fascia was tagged bilaterally with 0- vicryl suture. A #10 Hernandez trocar was positioned and CO2 gas was used to insufflate the abdomen to a quantity sufficient for the laparoscopy. The laparoscope was inserted and a survey was done of the abdomen pictures were obtained. Findings noted as above. Two 5 mm ports were placed in the right and left quandrants under direct visualization. The left fallopian tube was elevated and the mesosalpinx was taken down in a step lemus fashion with the ligasure; clamping, coagulating and cutting. Then left tube was then cross clamped cauterized and cut on the other side of the ectopic toward the uterus. GOod hemostasis was noted. A #10 endocatch bag was inserted and the specimen was removed . This will be sent to lab as left fallopian tube /products of conception. Good hemostasis was again noted. Pictures were obtained. At this point the procedure was terminated. All instrument removed from the patient's abdomen and CO2 gas was allowed to escape. The infraumbilical port was removed. The fascia was closed with 0 Vicryl suture. The skin was closed with 3-0 Monocryl in a running fashion. The skin incision was then clean dried and Dermabond was applied over the skin incision. All instrument sponge and needle counts were correct x3 for the procedure the patient tolerated the procedure well. She will proceed to recovery room in stable condition
--- NOTE | 2020-02-12 06:51 | PDOC DISCHARGE SUMMARY ---
Impression - Admit/DC Date/PCP Admission Date/Primary Care Provider: 02/10/20 10:56 Discharge Date: 02/12/20 - Discharge Diagnosis (1) 2019 novel coronavirus disease (COVID-19) Is this a current diagnosis for this admission?: Yes (2) Ectopic Is this a current diagnosis for this admission?: Yes - Additional Information Resuscitation Status: Full Code Discharge Diet: As Tolerated Discharge Activity: Activity As Tolerated, No Driving - until you stop taking Tramadol, No Lifting Over 10 Pounds, No Lifting/Push/Pulling, Pelvic Rest, Walk Frequently Prescriptions: Ibuprofen [Motrin 800 mg Tablet] 800 mg PO Q6 #60 tablet Tramadol HCl [Ultram 50 mg Tablet] 50 mg PO Q4HP PRN 5 Days #25 tab PRN Reason: Home Medications: Labetalol HCl 300 mg PO BID 02/27/18 Vit No.130/Iron/Folic [ Tablet] 1 each PO DAILY 02/27/18 Sertraline HCl [Zoloft 50 mg Tablet] 50 mg PO DAILY 02/27/18 Ibuprofen [Motrin 800 mg Tablet] 800 mg PO Q6 #60 tablet 02/11/20 Tramadol HCl [Ultram 50 mg Tablet] 50 mg PO Q4HP PRN 5 Days #25 tab 02/11/20 History of Present Illiness History of Present Illness: FIDELIA TRAVIS is a 34 year old female Physical Exam - Physical Exam Vital Signs: Temp Pulse Resp BP Pulse Ox 97.6 F 82 16 99/58 L 98 02/11/20 22:00 02/12/20 02:00 02/11/20 20:31 02/11/20 20:31 02/11/20 20:31 Intake & Output 02/10/20 02/11/20 02/12/20 06:59 06:59 06:59 Intake Total 1000 3350 Output Total 160 Balance 1000 3190 Results Laboratory Results: WBC 6.1 10^3/uL (4.0-10.5) 02/12/20 05:43 RBC 4.22 10^6/uL (3.72-5.28) 02/12/20 05:43 Hgb 11.7 g/dL (12.0-15.5) L 02/12/20 05:43 Hct 34.3 % (36.0-47.0) L 02/12/20 05:43 MCV 81 fl (80-97) 02/12/20 05:43 MCH 27.6 pg (27.0-33.4) 02/12/20 05:43 MCHC 34.0 g/dL (32.0-36.0) 02/12/20 05:43 RDW 13.2 % (11.5-14.0) 02/12/20 05:43 Plt Count 223 10^3/uL (150-450) 02/12/20 05:43 Lymph % (Auto) 13.8 % (13-45) 02/12/20 05:43 [place] % (Auto) 7.0 % (3-13) 02/12/20 05:43 Eos % (Auto) 0.1 % (0-6) 02/12/20 05:43 Baso % (Auto) 0.1 % (0-2) 02/12/20 05:43 Absolute Neuts (auto) 4.9 10^3/uL (1.7-8.2) 02/12/20 05:43 Absolute Lymphs (auto) 0.8 10^3/uL (0.5-4.7) 02/12/20 05:43 Absolute Monos (auto) 0.4 10^3/uL (0.1-1.4) 02/12/20 05:43 Absolute Eos (auto) 0.0 10^3/uL (0.0-0.6) 02/12/20 05:43 Absolute Basos (auto) 0.0 10^3/uL (0.0-0.2) 02/12/20 05:43 Seg Neutrophils % 79.0 % (42-78) H 02/12/20 05:43 Beta HCG, Quant 32600.00 mIU/mL (0.0-6.15) H 02/11/20 06:02 Total Beta HCG POSITIVE (NEGATIVE) 02/11/20 06:02 Influenza A (RT-PCR) NEGATIVE (NEGATIVE) 02/10/20 11:44 Influenza B (RT-PCR) NEGATIVE (NEGATIVE) 02/10/20 11:44 RSV (RT-PCR) NEGATIVE (NEGATIVE) 02/10/20 11:44 SARS-CoV-2 Rap RNA(RT-PCR) POSITIVE (NEGATIVE) H 02/10/20 11:44 Blood Type O POSITIVE 12/02/20 11:31 Antibody Screen NEGATIVE 02/10/20 11:31 Impressions: Abdomen/Pelvis CT 02/11/20 10:45 IMPRESSION: No comparison imaging available. A 12 x 7 x 8 mm hypoattenuating focus in the region of the left adnexa may represent history-reported ectopic . Please note that CT imaging is neither sensitive nor specific in evaluation of ectopic pregnancies. Consider dedicated pelvic ultrasound. Stroke Is this a Stroke Patient?: No Acute Heart Failure Is this a Heart Failure Patient?: No
[2020-02-12 08:13] VITALS: BP 104/59
== END 2020-02-12 10:52 | disposition home or self-care (01) ==
LOC: 2N 10:56 → 3S 17:20
PROVIDERS: ADMIT Obstetrics & Gynecology; ATTEND Specialist
DX: U07.1 COVID-19 (principal); O00.90 Unspecified ectopic pregnancy without intrauterine pregnancy; O36.80X0 Pregnancy with inconclusive fetal viability, not applicable or unspecified; F41.9 Anxiety disorder, unspecified; R00.2 Palpitations; R10.32 Left lower quadrant pain; Z87.891 Personal history of nicotine dependence; Z79.899 Other long term (current) drug therapy
CPT/HCPCS: 86900; 86901; 36415 ×3; 86850; 84702 ×2; 85025 ×2; 0241U ×4; 88305 ×2; 74177; 99140; 00840; 59151; G0378 ×4; G0379; J3490 ×4; J2250 ×2; J1100; J1885; J3010 ×2; J2270; J2405; J7120 ×3; J2704 ×2; C9803; 840; J1170